=== PATIENT | male | born 1950 | race Caucasian/White ===

== ENCOUNTER → 2019-09-14 14:12 | Outpatient (BNVA) | payer MEDICARE, OTHER, SELFPAY | PROVIDERS: Family Provider Family Medicine; PCP Family Medicine; Visit Provider Nurse Practitioner | DX: M79.671 Pain in right foot (principal); M79.672 Pain in left foot; G62.89 Other specified polyneuropathies; R29.898 Other symptoms and signs involving the musculoskeletal system; Z79.891 Long term (current) use of opiate analgesic | CPT/HCPCS: 99213; 99214 ==

== ENCOUNTER 2019-10-12 13:13 | Outpatient (CLI) | payer MEDICARE, OTHER, SELFPAY ==
--- NOTE | 2019-10-12 13:20 | MR_ITS ---
WS: [id number] MRI abdomen with and without contrast. HISTORY: History of colon cancer. Abnormal liver findings. Planar, multisequence imaging is performed through the liver with and without contrast. COMPARISON: CT 03/17/2018 and prior MRI abdomen 12/31/2017. Liver is normal size. Stable masses in the RIGHT lobe of the liver inferiorly. The largest mass is lo bulated and partially exophytic resulting in bulging of the contour of the RIGHT hepatic lobe. Lobula marleni mass is stable measuring 4.9 x 2.8 cm. Predominantly T2 increased signal with a few more intense areas of increased signal. On the postcontrast sequences there is peripheral enhancement. Mass does n ot completely fill-in with contrast and become isointense to the remaining liver but this mass has be en stable over multiple years and noted to be benign on PET/CT, likely hemangioma. There is an additi onal T2 bright nodule in the RIGHT lobe of the liver with a maximum diameter of 1.2 cm. This nodule e nhances consistent with a hemangioma. This nodule is also stable compared to multiple prior studies. Portal vein is patent. Visualized gallbladder is negative. Again noted is a stable lipid rich LEFT ad renal mass measuring 2.4 x 1.8 cm consistent with an adenoma. No pleural effusion. The visualized spleen and pancreas are negative. Negative RIGHT adrenal gland. N o adenopathy or ascites. MR/MR abdomen wo/w con* [id number] IMPRESSION: 1. Long-term stability of PET/CT negative for masses in the RIGHT lobe of the liver consistent with hemangiomas. 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 2. Stable benign LEFT adrenal adenoma.
[2019-10-12 14:02] LABS: Blood Urea Nitrogen 22 mg/dL (8-23); Glomerular Filtration Rate 96.1 mL/min (90-130)
== END 2019-10-12 13:14 | disposition home or self-care (01) ==
LOC: RADSHAW 13:13
PROVIDERS: Family Provider Family Medicine; PCP Family Medicine; Visit Provider Surgery
DX: M79.671 Pain in right foot (principal); M79.672 Pain in left foot; G62.89 Other specified polyneuropathies; R29.898 Other symptoms and signs involving the musculoskeletal system; Z79.891 Long term (current) use of opiate analgesic
CPT/HCPCS: 74183; 82565; 84520; 99214; A9579

== ENCOUNTER → 2020-01-18 13:26 | Outpatient (BNVA) | payer MEDICARE, OTHER, SELFPAY | PROVIDERS: Family Provider Family Medicine; PCP Family Medicine; Visit Provider Anesthesiology | DX: G89.29 Other chronic pain (principal); M79.671 Pain in right foot; M79.672 Pain in left foot; M48.07 Spinal stenosis, lumbosacral region; G62.89 Other specified polyneuropathies; Z79.891 Long term (current) use of opiate analgesic | CPT/HCPCS: 99214 ==

== ENCOUNTER 2020-02-06 13:59 | Outpatient (CLI) | payer MEDICARE, OTHER, SELFPAY ==
[2020-02-06 14:27] LABS: Basophils % 0.4 %; Eosinophils # 0.1 10^3/uL (0.0-0.8); Eosinophils % 1.7 %; Hematocrit 41.5 % (42.0-52.0); Hemoglobin 12.9 g/dL (11.7-16.6); Lymphocytes # 0.7 10^3/uL (0.8-4.8); Mean Corpuscular HGB Conc 31.1 g/dL (30.0-36.0); Mean Corpuscular Hemoglobin 29.8 pg (28.0-34.0); Mean Corpuscular Volume 95.8 fL (80-94); Mean Platelet Volume 10.6 fL (7.4-10.4); Monocytes # 0.4 10^3/uL (0.2-0.9); Monocytes % 8.9 %; Neutrophils # 3.4 10^3/uL (1.8-7.7); Neutrophils % 73.8 %; Nucleated Red Blood Cells % 0 %; Platelet Count 143 10^3/cmm (130-400); Red Blood Count 4.33 10^6/uL (4.1-5.3); Red Cell Distribution Width 13.1 % (12.1-15.1); White Blood Count 4.6 10^3/uL (4.0-10.0)
[2020-02-06 14:49] LABS: Carcinoembryonic Antigen 4.3 ng/mL (0.0-4.7)
[2020-02-06 15:00] LABS: Alanine Aminotransferase 22 U/L (0-41); Albumin Level 4.2 g/dL (3.5-5.2); Alkaline Phosphatase 112 IU/L (40-130); Aspartate Amino Transferase 20 U/L (0-40); Blood Urea Nitrogen 19 mg/dL (8-23); Calcium 9.4 mg/dL (8.5-10.5); Carbon Dioxide 28 mmol/L (22-29); Chloride 101 mmol/L (98-107); Globulin 2.8 g/dL (1.3-4.6); Glomerular Filtration Rate 96.1 mL/min (90-130); Glucose 96 mg/dL (65-115); Osmolality Calculated 286 mOsm/kg (285-295); Sodium 140 mmol/L (136-145); Total Bilirubin 0.3 mg/dL (0.15-1.2)
--- NOTE | 2020-02-06 16:41 | ONC FU_ITS ---
Dr. Cohen follow up note Patient: Rogerio Sweet Unit #: [id number]: 1950 Dicatated By: Juany Cohen M.D.Date of Visit:Feb 06, 2020 Onc Med Follow-up/Prog Note History of Present Illness: Mr. Sweet is a 69-year-old gentleman with a 3-4 year history of rectal bleeding which he thought was due to hemorrhoids. This had not changed recently. However he was noted to have progressive anemia after several CBCs. His hemoglobin had dropped to 9, in the rectum. which prompted a diagnostic colonoscopy on 11/24/2017. The colonoscopy did reveal a malignant appearing mass involving two thirds of the circumference in the rectum. This was biopsied and the pathology confirmed well to moderately differentiated infiltrating adenocarcinoma. Mr. Sweet underwent a CT of the abdomen and pelvis on 11/24/2017 which showed near-complete circumferential rectal thickening over length of 6.2 cm with a wall thickening measured up to 1.3 cm. There was a suspicious hypodense mass in the liver. PET/CT on 12/04/2017 showed hypermetabolic rectal mass. There were presacral and perirectal lymph nodes that were too small to characterize with FDG imaging that were suspicious for metastasis. The hepatic masses FDG negative suggesting benign disease. MRI of the pelvis was obtained at [facility] in [place] on 12/16/2017. It showed several interim mass within the mid to superior rectal segment about 8.5 cm above the anal verge. The mass involves a 4.3 cm in length rectal segment. Other details as on the tumor margins all high-resolution, T2 weighted images are limited due to bowel motion, the images are suggestive of T2 disease that as early as T3 disease. There is 8 mm left perirectal and presacral lymph node adjacent/superior to the rectal mass. 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 He began his first week of chemoradiation on 01/18/2018 with oral Xeloda . He completed therapy on 02/25/2018. He had boost consisting of 540 cGy at that time and prior he finished his full dosing radiation to the pelvis on 02/22/2018 with a total of 4500 cGy total. He has completed the Xeloda as well. After completion of his neoadjuvant therapy, Mr. Sweet returned to Dr. Reddy and underwent robotic resection with ileostomy placement his final pathology showed margin negative resection and 11 negative lymph nodes. The tumor is still T3. It was recommended that Mr Clement pursue 12 cycles of FOLFOX. The current plan is to do ileostomy bag reversal after adjuvant chemotherapy is concluded. Mr. Sweet began his first treatment of FOLFOX on 06/09/2018. presented to the ER with worsening back and leg pain. He did have an MRI of the lumbar spine done on 09/15/18 which reports moderate to severe bilateral foraminal stenosis at L5-S1 due to combination of factors including grade 1 spondylolisthesis of L5 and L5 spondylosis. There is also mild facet joint arthropathy throughout the lumbar spine. no significant central stenosis. He states however that the hydrocodone does not help his pain at all. He feels that the Lyrica that was started in the emergency room may have helped some. He was seen by Dr. Ivan neurologist on 09/23/2018 and he was given prescription for vitamin E twice a day, Effexor 37.5 mg daily and continued with lyrica and nerve conduction study was planned. Patient denies any numbness in hands/ upper extremity weakness or pain. Clinically it appears his pain/paresthesia and lower extremity could be from lumbar spine abnormality seen on MRI scan and chemotherapy may have added some to his symptoms. His last dose of chemotherapy with modified FOLFOX cycle #5 was done on 09/01/2018. persistent numbness in lower extremity especially in the feet and off and on cramps in both legs, sometime change in lower extremities position helps him. He is on Lyrica, Effexor , vitamin E and when necessary hydrocodone. Patient was seen by Dr. Ivan, feeder/folder, and recently underwent nerve conduction study. As per patient and , nerve conduction study did not clarify, whether numbness is due to spinal stenosis or chemotherapy, now being referred to Dr. Oneil, neurosurgery for evaluation and patient has follow-up appointment with Dr. Ivan in December 2018. lower extremities numbness but no more numbness in his hands. As per patient Dr. Oneil has increased his Lyrica dose 200 mg by mouth 3 times a day and now his numbness is more in the right foot compared to left and up to below knee bilaterally .Patient was referred and evaluated in colorectal clinic at [facility] in [place] for evaluation for clinical trial especially with immunotherapy in adjuvant setting. Patient was seen. As per the recommendation, it is doubtful chemotherapy is entirely responsible for lower extremity numbness as numbness in hands is resolved now, so it could be due to nerve root impingement in the spine, treatment options including continue with FOLFOX or 5-FU alone or observation, was recommended but patient is reluctant and wants to see Dr. Alvarez neurologist in [place] before consider any treatment. Patient quit taken FOLFOX after 5 cycles and went to [place] to see Dr. Alvarez, as per patient he underwent L5 surgery and a did not improve numbness in his feet, as per patient Dr. Alvarez has done the best could have. .Patient underwent endoscopy examination through ileostomy, in mid March 2019 and as per patient he it showed no abnormality and subsequently underwent ileostomy reversal on 04/13/2019 in [place]. As far as hepatic lesions seen on previous radiological studies, thought to be due to hemangioma is concern, patient underwent liver sonogram in first week of March in 2018 in [place] as per patient he was told 1 out of 4 lesions has disappeared and other 3 are not that prominent. And no sign of malignancy. Patient went to see Dr. izaguirre for port removal, . Came for follow-up, denies any specific complaint except chronic tingling numbness but somewhat better, not using walker anymore or stick, as per patient he underwent colonoscopy in [address] Izaguirre in [place], as per patient it was unremarkable and he also had MRI scan of the abdomen done on October 12, 2019 which showed long-term stability of CT PET negative for masses in the right lobe of the liver consistent with hemangioma. 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 Stable benign left adrenal adenoma. Patient denies any fever chills, denies any nausea or vomiting denies any diarrhea constipation denies any melena hematochezia. Denies any jaundice. As per patient he has a follow-up appointment with Dr. izaguirre and Dr. Lomeli in April 2020. Medications: Effexor XR 1 Capsule (of 75 mg) Capsule SR 24 HR Oral b.i.d., EPINEPHrine (Anaphylaxis) 1 Injection PRN, Gabapentin 1 Capsule (of 300 mg) Oral t.i.d., Lisinopril 1 (20 mg) Tablet Oral daily, Multivitamin Men 1 Tablet Oral daily, Viagra 1 Tablet (of 100 mg) Tablet Oral PRN Allergies: Penicillins, Pravastatin Sodium, and RED MEAT. Review of Systems: Constitutional - Appetite is fair and weight is stable. No fever, chills, hot flashes, or night sweats. Energy level is poor, ENMT - No sinus congestion/drainage. No mouth sores. No sore throat or difficulty swallowing, Hematologic/Lymphatic - No unusual bruising or bleeding, Respiratory - No shortness of breath. No cough. No pleuritic pain or hemoptysis, Cardiovascular - No angina pain. No palpitations, Gastrointestinal - Patient has no nausea, no vomiting. No heartburn or acid reflux. No diarrhea or constipation, Genitourinary (M) - No dysuria or hematuria. No urinary frequency. No urgency or incontinence, Musculoskeletal - bilateral feet pain, Integumentary - No skin ulcer or open wounds, Neurologic - No headache or dizziness. Patient has some numbness/paresthesias to bilateral feet. No other focal neurologic symptoms, Psychiatric - No anxiety or depression. Positive for insomnia. Vital Signs: Performed on Feb 06, 2020 15:51 Height - 68.00 in Weight - 191.8 lbs (HIGH) BSA - 2.01 sq.m BMI - 29.16 Temperature - 98.8 F Pulse - 88 /min Respiration - 18 /min BP - 154/79 mm(hg) (HIGH) O2 Sat - 94 % (LOW) Pain - 0 Performance Status: 1 - No physically strenuous activity, but ambulatory and able to carry out light or sedentary work (e.g. office work, light house work). (ECOG) Physical Examination: ENMT - No mouth sores, no thrush no jaundice, Respiratory - Lungs are clear, Cardiovascular - Regular rate and rhythm of heart, Abdomen - Soft, bowel sounds present, Extremities - No edema or rash. Lab/Imaging: Most recent lab results are not available for this patient. Impression: Moderately differentiated adenocarcinoma of the rectum status post neoadjuvant combined chemoradiation with oral Xeloda from 01/18/2018 to 02/25/[address] Status post robotic resection of rectal mass with ileostomy final pathology report showed tumor invades through muscularis propria into pericolorectal tissue ,T3, no regional lymph node metastasis in 11 examined lymph node N0, no lymphovascular/perineural invasion seen . ypT3,N0 stage II MMR/MSI testing showed normal expression of DNA mismatch repair protein Focally infiltrating adenocarcinoma per rectal biopsy done on 11/24/2017 CT scan of abdomen pelvis done on 11/24/2017 showed in the region of rectum there is near circumferential mucosal thickening with enhancement extending over a length of 6.2 cm and multiple hepatic lesions largest being 4.9 x 5.1 x 3.1 cm in posterior right lobe of the liver CT PET scan done on 12/12/2017 showed primary rectal carcinoma with SUV of 20.1 measured 4.3 x 3.7 x 7 cm there are small subcentimeter multiple presacral and perirectal lymph nodes present and posterior right hepatic lobe mass seen on CT scan of abdomen pelvis is FDG negative this makes hepatic metastatic disease unlikely. MRI scan of the pelvis done on 12/16/2017 showed there is a [id number]-smzqqe masslike process within the mid to superior rectum roughly 8.5 cm above the anal verge measure 4.3 cm in length and nonspecific 8 mm left perirectal lymph node seen MRI scan of the liver done on 12/31/2017 reported: Several liver lesions compatible with cavernous hemangiomas including posterior margin right lobe somewhat exophytic lesion. Additional incidental superior subcapsular medial segment left lobe. No space-occupying liver lesion seen to suggest metastatic disease. 2. Lipid rich left adrenal adenoma. Mr. Sweet was advised to pursue neoadjuvant combined therapy with radiation and chemotherapy. His chemotherapy agent consisted of Xeloda 1500 mg twice a day on the days of radiation only. He began his first treatment with Xeloda and radiation on January 18, 2018. He has tolerated treatment very well. He completed his final radiation treatment on 02/25/2018. He completed the Xeloda as well. CT scan of abdomen pelvis done on 03/17/2018 showed improvement in rectal wall thickening stable liver lesion most suggestive of cavernous hemangiomas, upper pole left renal lesion, likely a solid lesion and stable from prior exam. Status post robotic resection of rectal mass with 11 lymph nodes removal and final pathology report showed persistent disease e.g.T3 and 0 out of 11 lymph nodes positive for metastatic disease with ileostomy bag. The current plan is to do ileostomy bag reversal after adjuvant chemotherapy is concluded. Mr Kee started on adjuvant chemotherapy with modified dose FOLFOX on 06/09/2018. He had tolerated it well overall, but did have a drop in blood counts with his first cycle resulting in a delay in cycle 2. He is now having worsening leg and back pain. Somewhat supsected to be from oxaliplatin but he also has moderate to severe bilateral foraminal stenosis at L5-S1 due to combination of factors including grade 1 spondylolisthesis of L5 and L5 spondylosis. There is also mild facet joint arthropathy throughout the lumbar spine. no significant central stenosis. His chemotherapy with modified dose FOLFOX is on hold since 09/01/2018 e.g. after cycle #5/12. Patient was evaluated by Dr. Ivan, neurologist on 09/23/2018, so he was given vitamin E, Effexor and continue with lyrica . Now being monitored in pain clinic, numbness in his hands has improved significantly but persistent numbness in in the feet, right more than left. Patient doesn't want to start chemotherapy as per patient, he was told by neurology and pain clinic that his numbness in his feet is due to chemotherapy. Patient was evaluated in colorectal clinic at [facility] and following was recommended, observation alone, or complete remaining adjuvant therapy with 5-FU alone continue with FOLFOX with close monitoring. As his numbness in lower extremity appears to be multifactorial including but most likely pathology in his spine , as numbness in his hands is resolved. Next Patient wants to see Dr. Alvarez neurologist in [place] and want to discuss with him regarding safety of oxaliplatin/5-FU before we consider chemotherapy, knowing the risk versus benefits involved. After fifth dose of FOLFOX, patient decided not to take further chemotherapy rather observation alone Plan: Discussed with patient regarding his labs white blood count 4.6 hemoglobin 12.9 hematocrit 41.5 platelets 143,000 CMP within normal limits CEA is pending Clinically, patient is doing well with no signs symptoms just of recurrence of disease. Patient had a follow-up MRI scan of the liver/abdomen done in September 2019 which showed stable liver lesion consistent with hemangioma and no evidence of recurrence of disease. Patient also had colonoscopy done in [place] in September 2019 as per patient, it was unremarkable. Will obtain copy of his colonoscopy report from [place]. Patient said he has follow-up appointment with Dr. Lomeli, and Dimitri in the mid April 2020, and he is getting his follow-up scans and evaluation done there in that case we will see him back in the first week of May 2020 with CBC CMP and CEA. Signed By: Juany Cohen M.D. <<Signature on File>>
== END 2020-02-06 14:00 | disposition home or self-care (01) ==
LOC: ONCMED 14:03
PROVIDERS: PCP Family Medicine; Visit Provider Internal Medicine Hematology & Oncology
DX: C20 Malignant neoplasm of rectum (principal); R20.0 Anesthesia of skin; M48.061 Spinal stenosis, lumbar region without neurogenic claudication; D18.09 Hemangioma of other sites; Z92.21 Personal history of antineoplastic chemotherapy; Z92.3 Personal history of irradiation
CPT/HCPCS: 80053; 82378; 85025; G0463

== ENCOUNTER → 2020-03-21 09:17 | Outpatient (BNVA) | payer MEDICARE, OTHER, SELFPAY | PROVIDERS: PCP Family Medicine; Visit Provider Anesthesiology | DX: G89.29 Other chronic pain (principal); G62.89 Other specified polyneuropathies; M54.5 Low back pain; M48.07 Spinal stenosis, lumbosacral region; Z79.891 Long term (current) use of opiate analgesic | CPT/HCPCS: 99214 ==

== ENCOUNTER 2020-05-09 11:24 | Outpatient (CLI) | payer MEDICARE, OTHER, SELFPAY ==
[2020-05-09 11:58] LABS: Basophils % 0.5 %; Eosinophils # 0.1 10^3/uL (0.0-0.8); Eosinophils % 2.3 %; Hemoglobin 12.5 g/dL (11.7-16.6); Lymphocytes # 0.6 10^3/uL (0.8-4.8); Lymphocytes % 16.4 %; Mean Corpuscular HGB Conc 31.3 g/dL (30.0-36.0); Mean Corpuscular Hemoglobin 30.3 pg (28.0-34.0); Mean Corpuscular Volume 96.9 fL (80-94); Mean Platelet Volume 10.9 fL (7.4-10.4); Monocytes # 0.3 10^3/uL (0.2-0.9); Monocytes % 7.5 %; Neutrophils # 2.81 10^3/uL (1.8-7.7); Nucleated Red Blood Cells % 0 %; Platelet Count 125 10^3/cmm (130-400); Red Blood Count 4.13 10^6/uL (4.1-5.3); Red Cell Distribution Width 13.1 % (12.1-15.1); White Blood Count 3.9 10^3/uL (4.0-10.0)
[2020-05-09 12:32] LABS: Carcinoembryonic Antigen 3.9 ng/mL (0.0-4.7)
[2020-05-09 12:43] LABS: Anion Gap 12.5 (5-19); Blood Urea Nitrogen 26 mg/dL (8-23); Carbon Dioxide 26 mmol/L (22-29); Chloride 102 mmol/L (98-107); Potassium 4.5 mmol/L (3.5-5.1); Sodium 136 mmol/L (136-145)
[2020-05-09 12:44] LABS: Alanine Aminotransferase 17 U/L (0-41); Albumin Level 4.1 g/dL (3.5-5.2); Alkaline Phosphatase 100 IU/L (40-130); Aspartate Amino Transferase 17 U/L (0-40); Calcium 8.7 mg/dL (8.5-10.5); Globulin 2.6 g/dL (1.3-4.6); Glomerular Filtration Rate 83.7 mL/min (90-130); Glucose 89 mg/dL (65-115); Osmolality Calculated 286 mOsm/kg (285-295); Total Bilirubin 0.5 mg/dL (0.15-1.2); Total Protein 6.7 g/dL (6.6-8.7)
--- NOTE | 2020-05-09 18:33 | ONC FU_ITS ---
Dr. Cohen follow up note Patient: Rogerio Sweet Unit #: [id number]: 1950 Dicatated By: Juany Cohen M.D.Date of Visit:May 09, 2020 Onc Med Follow-up/Prog Note History of Present Illness: Mr. Sweet is a 70-year-old gentleman with a 3-4 year history of rectal bleeding which he thought was due to hemorrhoids. This had not changed recently. However he was noted to have progressive anemia after several CBCs. His hemoglobin had dropped to 9, in the rectum. which prompted a diagnostic colonoscopy on 11/24/2017. The colonoscopy did reveal a malignant appearing mass involving two thirds of the circumference in the rectum. This was biopsied and the pathology confirmed well to moderately differentiated infiltrating adenocarcinoma. Mr. Sweet underwent a CT of the abdomen and pelvis on 11/24/2017 which showed near-complete circumferential rectal thickening over length of 6.2 cm with a wall thickening measured up to 1.3 cm. There was a suspicious hypodense mass in the liver. PET/CT on 12/04/2017 showed hypermetabolic rectal mass. There were presacral and perirectal lymph nodes that were too small to characterize with FDG imaging that were suspicious for metastasis. The hepatic masses FDG negative suggesting benign disease. MRI of the pelvis was obtained at [facility] in [place] on 12/16/2017. It showed several interim mass within the mid to superior rectal segment about 8.5 cm above the anal verge. The mass involves a 4.3 cm in length rectal segment. Other details as on the tumor margins all high-resolution, T2 weighted images are limited due to bowel motion, the images are suggestive of T2 disease that as early as T3 disease. There is 8 mm left perirectal and presacral lymph node adjacent/superior to the rectal mass. 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 He began his first week of chemoradiation on 01/18/2018 with oral Xeloda . He completed therapy on 02/25/2018. He had boost consisting of 540 cGy at that time and prior he finished his full dosing radiation to the pelvis on 02/22/2018 with a total of 4500 cGy total. He has completed the Xeloda as well. After completion of his neoadjuvant therapy, Mr. Sweet returned to Dr. Reddy and underwent robotic resection with ileostomy placement his final pathology showed margin negative resection and 11 negative lymph nodes. The tumor is still T3. It was recommended that Mr Clement pursue 12 cycles of FOLFOX. The current plan is to do ileostomy bag reversal after adjuvant chemotherapy is concluded. Mr. Sweet began his first treatment of FOLFOX on 06/09/2018. presented to the ER with worsening back and leg pain. He did have an MRI of the lumbar spine done on 09/15/18 which reports moderate to severe bilateral foraminal stenosis at L5-S1 due to combination of factors including grade 1 spondylolisthesis of L5 and L5 spondylosis. There is also mild facet joint arthropathy throughout the lumbar spine. no significant central stenosis. He states however that the hydrocodone does not help his pain at all. He feels that the Lyrica that was started in the emergency room may have helped some. He was seen by Dr. Ivan neurologist on 09/23/2018 and he was given prescription for vitamin E twice a day, Effexor 37.5 mg daily and continued with lyrica and nerve conduction study was planned. Patient denies any numbness in hands/ upper extremity weakness or pain. Clinically it appears his pain/paresthesia and lower extremity could be from lumbar spine abnormality seen on MRI scan and chemotherapy may have added some to his symptoms. His last dose of chemotherapy with modified FOLFOX cycle #5 was done on 09/01/2018. persistent numbness in lower extremity especially in the feet and off and on cramps in both legs, sometime change in lower extremities position helps him. He is on Lyrica, Effexor , vitamin E and when necessary hydrocodone. Patient was seen by Dr. Ivan, lithograph printer, and recently underwent nerve conduction study. As per patient and , nerve conduction study did not clarify, whether numbness is due to spinal stenosis or chemotherapy, now being referred to Dr. Oneil, neurosurgery for evaluation and patient has follow-up appointment with Dr. Ivan in December 2018. lower extremities numbness but no more numbness in his hands. As per patient Dr. Oneil has increased his Lyrica dose 200 mg by mouth 3 times a day and now his numbness is more in the right foot compared to left and up to below knee bilaterally .Patient was referred and evaluated in colorectal clinic at [facility] in [place] for evaluation for clinical trial especially with immunotherapy in adjuvant setting. Patient was seen. As per the recommendation, it is doubtful chemotherapy is entirely responsible for lower extremity numbness as numbness in hands is resolved now, so it could be due to nerve root impingement in the spine, treatment options including continue with FOLFOX or 5-FU alone or observation, was recommended but patient is reluctant and wants to see Dr. Alvarez neurologist in [place] before consider any treatment. Patient quit taken FOLFOX after 5 cycles and went to [place] to see Dr. Alvarez, as per patient he underwent L5 surgery and a did not improve numbness in his feet, as per patient Dr. Alvarez has done the best could have. .Patient underwent endoscopy examination through ileostomy, in mid March 2019 and as per patient he it showed no abnormality and subsequently underwent ileostomy reversal on 04/13/2019 in [place]. As far as hepatic lesions seen on previous radiological studies, thought to be due to hemangioma is concern, patient underwent liver sonogram in first week of March in 2018 in [place] as per patient he was told 1 out of 4 lesions has disappeared and other 3 are not that prominent. And no sign of malignancy. Patient went to see Dr. izaguirre for port removal, . , as per patient he underwent colonoscopy in September [address] Izaguirre in [place], as per patient it was unremarkable and he also had MRI scan of the abdomen done on October 12, 2019 which showed long-term stability of CT PET negative for masses in the right lobe of the liver consistent with hemangioma. 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 Stable benign left adrenal adenoma. Came for follow-up, denies any specific complaints, no fever chills, no nausea or vomiting, no diarrhea or constipation, no melena or hematochezia as per patient he was recently evaluated by Dr. Izaguirre and rectal exam showed no abnormality and also seen by Dr. Lomeli who did scans on May 02, 2020 showed no evidence of metastatic disease and he was advised to come back in 1 year. 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 Review of Systems: Review of Systems is not available for this patient. Vital Signs: Performed on May 09, 2020 13:18 Height - 68.00 in Weight - 190.6 lbs (LOW) BSA - 2.00 sq.m BMI - 28.98 Temperature - 98.2 F (LOW) Pulse - 75 /min Respiration - 24 /min BP - 151/72 mm(hg) (HIGH) O2 Sat - 98 % Pain - 0 Performance Status: 0 - Fully active, able to carry on all predisease activities without restrictions. (ECOG) Physical Examination: ENMT - No mouth sores, no thrush, no jaundice, Respiratory - Lungs are clear to auscultation, Cardiovascular - Regular rate and rhythm of heart, Abdomen - Soft, bowel sounds present, Extremities - No visible edema or rash. Lab/Imaging: Test performed on Feb 06, 2020 14:08 Sodium 140 mmol/L Potassium 4.0 mmol/L Chloride 101 mmol/L CO2 28 mmol/L Anion Gap 15.0 BUN 19 mg/dL Creatinine 0.8 mg/dL Cr Clearance (Est) 108.75 mL/min eGFR 96.1 mL/min Glucose 96 mg/dL Calcium 9.4 mg/dL Protein, Total 7.0 g/dL Albumin 4.2 g/dL Globulin 2.8 g/dL Bilirubin, Total 0.3 mg/dL ALT (SGPT) 22 U/L AST (SGOT) 20 U/L Alkaline Phosphatase 112 IU/L WBC 4.6 10 3/uL RBC 4.33 10 6/uL HGB 12.9 g/dL HCT 41.5 % MCV 95.8 fL MCH 29.8 pg MCHC 31.1 g/dL RDW 13.1 % Platelet Count 143 10 3/cmm MPV 10.6 fL Neutrophils 3.4 10 3/uL Lymphocytes 0.7 10 3/uL Monocytes 0.4 10 3/uL Eosinophils 0.1 10 3/uL Basophils 0.0 10 3/uL Neutrophil % 73.8 % Lymphocyte % 15.0 % Monocyte % 8.9 % Eosinophil % 1.7 % Basophils % 0.4 % NRBC % 0 % CEA 4.3 ng/mL Impression: Moderately differentiated adenocarcinoma of the rectum status post neoadjuvant combined chemoradiation with oral Xeloda from 01/18/2018 to 02/25/[address] Status post robotic resection of rectal mass with ileostomy final pathology report showed tumor invades through muscularis propria into pericolorectal tissue ,T3, no regional lymph node metastasis in 11 examined lymph node N0, no lymphovascular/perineural invasion seen . ypT3,N0 stage II MMR/MSI testing showed normal expression of DNA mismatch repair protein Focally infiltrating adenocarcinoma per rectal biopsy done on 11/24/2017 CT scan of abdomen pelvis done on 11/24/2017 showed in the region of rectum there is near circumferential mucosal thickening with enhancement extending over a length of 6.2 cm and multiple hepatic lesions largest being 4.9 x 5.1 x 3.1 cm in posterior right lobe of the liver CT PET scan done on 12/12/2017 showed primary rectal carcinoma with SUV of 20.1 measured 4.3 x 3.7 x 7 cm there are small subcentimeter multiple presacral and perirectal lymph nodes present and posterior right hepatic lobe mass seen on CT scan of abdomen pelvis is FDG negative this makes hepatic metastatic disease unlikely. MRI scan of the pelvis done on 12/16/2017 showed there is a doyh-hcybb-euyduw masslike process within the mid to superior rectum roughly 8.5 cm above the anal verge measure 4.3 cm in length and nonspecific 8 mm left perirectal lymph node seen MRI scan of the liver done on 12/31/2017 reported: Several liver lesions compatible with cavernous hemangiomas including posterior margin right lobe somewhat exophytic lesion. Additional incidental superior subcapsular medial segment left lobe. No space-occupying liver lesion seen to suggest metastatic disease. 2. Lipid rich left adrenal adenoma. Mr. Sweet was advised to pursue neoadjuvant combined therapy with radiation and chemotherapy. His chemotherapy agent consisted of Xeloda 1500 mg twice a day on the days of radiation only. He began his first treatment with Xeloda and radiation on January 18, 2018. He has tolerated treatment very well. He completed his final radiation treatment on 02/25/2018. He completed the Xeloda as well. CT scan of abdomen pelvis done on 03/17/2018 showed improvement in rectal wall thickening stable liver lesion most suggestive of cavernous hemangiomas, upper pole left renal lesion, likely a solid lesion and stable from prior exam. Status post robotic resection of rectal mass with 11 lymph nodes removal and final pathology report showed persistent disease e.g.T3 and 0 out of 11 lymph nodes positive for metastatic disease with ileostomy bag. The current plan is to do ileostomy bag reversal after adjuvant chemotherapy is concluded. Mr Sweet started on adjuvant chemotherapy with modified dose FOLFOX on 06/09/2018. He had tolerated it well overall, but did have a drop in blood counts with his first cycle resulting in a delay in cycle 2. He is now having worsening leg and back pain. Somewhat supsected to be from oxaliplatin but he also has moderate to severe bilateral foraminal stenosis at L5-S1 due to combination of factors including grade 1 spondylolisthesis of L5 and L5 spondylosis. There is also mild facet joint arthropathy throughout the lumbar spine. no significant central stenosis. His chemotherapy with modified dose FOLFOX is on hold since 09/01/2018 e.g. after cycle #5/12. Patient was evaluated by Dr. Ivan, neurologist on 09/23/2018, so he was given vitamin E, Effexor and continue with lyrica . Now being monitored in pain clinic, numbness in his hands has improved significantly but persistent numbness in in the feet, right more than left. Patient doesn't want to start chemotherapy as per patient, he was told by neurology and pain clinic that his numbness in his feet is due to chemotherapy. Patient was evaluated in colorectal clinic at [facility] and following was recommended, observation alone, or complete remaining adjuvant therapy with 5-FU alone continue with FOLFOX with close monitoring. As his numbness in lower extremity appears to be multifactorial including but most likely pathology in his spine , as numbness in his hands is resolved. Next Patient wants to see Dr. Alvarez neurologist in [place] and want to discuss with him regarding safety of oxaliplatin/5-FU before we consider chemotherapy, knowing the risk versus benefits involved. After fifth dose of FOLFOX, patient decided not to take further chemotherapy rather observation alone Plan: Discussed with patient regarding his labs white blood count 3.9 hemoglobin 12.5 hematocrit 40 platelets 125,000 CMP within normal, CEA 3.9 Clinically, patient is doing well with no signs symptom suggestive of recurrence of disease his follow-up lab work-up is within normal range patient said he underwent CT scan of abdomen pelvis on May 02, [address] Lomeli informed him there is no evidence of recurrence of disease. In this case we will continue to monitor patient has mild thrombocytopenia and leukopenia he will return to clinic in 4 months with CBC CMP and CEA. Signed By: Juany Cohen M.D. <<Signature on File>>
== END 2020-05-09 11:25 | disposition home or self-care (01) ==
LOC: ONCMED 11:28
PROVIDERS: PCP Family Medicine; Visit Provider Internal Medicine Hematology & Oncology
DX: C20 Malignant neoplasm of rectum (principal); C78.7 Secondary malignant neoplasm of liver and intrahepatic bile duct; Z92.3 Personal history of irradiation
CPT/HCPCS: 80053; 82378; 85025; G0463

== ENCOUNTER → 2020-05-24 13:15 | Outpatient (BNVA) | payer MEDICARE, OTHER, SELFPAY | PROVIDERS: PCP Family Medicine; Visit Provider Anesthesiology | DX: M79.672 Pain in left foot (principal); M79.671 Pain in right foot; G62.89 Other specified polyneuropathies; Z79.891 Long term (current) use of opiate analgesic | CPT/HCPCS: 99214 ==

== ENCOUNTER → 2020-07-20 09:49 | Outpatient (BNVA) | payer MEDICARE, OTHER, SELFPAY | PROVIDERS: PCP Family Medicine; Visit Provider Anesthesiology | DX: G89.29 Other chronic pain (principal); G62.89 Other specified polyneuropathies; M79.604 Pain in right leg; M79.605 Pain in left leg; M48.07 Spinal stenosis, lumbosacral region; Z79.891 Long term (current) use of opiate analgesic | CPT/HCPCS: 99214 ==

== ENCOUNTER → 2020-08-02 09:51 | Outpatient (BNVA) | payer MEDICARE, OTHER, SELFPAY | PROVIDERS: PCP Family Medicine; Visit Provider Podiatrist Foot & Ankle Surgery | DX: M19.072 Primary osteoarthritis, left ankle and foot (principal); M19.071 Primary osteoarthritis, right ankle and foot; M79.671 Pain in right foot; M79.672 Pain in left foot | CPT/HCPCS: 73630 ==

== ENCOUNTER 2020-09-11 12:56 | Outpatient (CLI) | payer MEDICARE, OTHER, SELFPAY ==
[2020-09-11 13:27] LABS: Basophils % 0.2 %; Eosinophils # 0.1 10^3/uL (0.0-0.8); Eosinophils % 1.6 %; Hematocrit 41.9 % (42.0-52.0); Hemoglobin 13.4 g/dL (11.7-16.6); Lymphocytes # 0.6 10^3/uL (0.8-4.8); Lymphocytes % 11.8 %; Mean Corpuscular Hemoglobin 30.9 pg (28.0-34.0); Mean Corpuscular Volume 96.8 fL (80-94); Mean Platelet Volume 10.7 fL (7.4-10.4); Monocytes # 0.3 10^3/uL (0.2-0.9); Monocytes % 5.8 %; Neutrophils # 4.02 10^3/uL (1.8-7.7); Neutrophils % 80.4 %; Nucleated Red Blood Cells % 0 %; Platelet Count 164 10^3/cmm (130-400); Red Blood Count 4.33 10^6/uL (4.1-5.3); Red Cell Distribution Width 13.2 % (12.1-15.1)
[2020-09-11 14:01] LABS: Alanine Aminotransferase 23 U/L (0-41); Albumin Level 4.4 g/dL (3.5-5.2); Alkaline Phosphatase 136 IU/L (40-130); Anion Gap 12.2 (5-19); Aspartate Amino Transferase 17 U/L (0-40); Blood Urea Nitrogen 22 mg/dL (8-23); Calcium 9.6 mg/dL (8.5-10.5); Carbon Dioxide 29 mmol/L (22-29); Chloride 102 mmol/L (98-107); Globulin 2.9 g/dL (1.3-4.6); Glomerular Filtration Rate 74.1 mL/min (90-130); Glucose 134 mg/dL (65-115); Osmolality Calculated 293 mOsm/kg (285-295); Potassium 4.2 mmol/L (3.5-5.1); Sodium 139 mmol/L (136-145); Total Bilirubin 0.3 mg/dL (0.15-1.2); Total Protein 7.3 g/dL (6.6-8.7)
--- NOTE | 2020-09-11 14:48 | ONC FU_ITS ---
Dr. Cohen follow up note Patient: Rogerio Sweet Unit #: [id number]: 1950 Dicatated By: Juany Cohen M.D.Date of Visit:Sep 11, 2020 Onc Med Follow-up/Prog Note History of Present Illness: Mr. Sweet is a 70-year-old gentleman with a 3-4 year history of rectal bleeding which he thought was due to hemorrhoids. This had not changed recently. However he was noted to have progressive anemia after several CBCs. His hemoglobin had dropped to 9, in the rectum. which prompted a diagnostic colonoscopy on 11/24/2017. The colonoscopy did reveal a malignant appearing mass involving two thirds of the circumference in the rectum. This was biopsied and the pathology confirmed well to moderately differentiated infiltrating adenocarcinoma. Mr. Sweet underwent a CT of the abdomen and pelvis on 11/24/2017 which showed near-complete circumferential rectal thickening over length of 6.2 cm with a wall thickening measured up to 1.3 cm. There was a suspicious hypodense mass in the liver. PET/CT on 12/04/2017 showed hypermetabolic rectal mass. There were presacral and perirectal lymph nodes that were too small to characterize with FDG imaging that were suspicious for metastasis. The hepatic masses FDG negative suggesting benign disease. MRI of the pelvis was obtained at [facility] in [place] on 12/16/2017. It showed several interim mass within the mid to superior rectal segment about 8.5 cm above the anal verge. The mass involves a 4.3 cm in length rectal segment. Other details as on the tumor margins all high-resolution, T2 weighted images are limited due to bowel motion, the images are suggestive of T2 disease that as early as T3 disease. There is 8 mm left perirectal and presacral lymph node adjacent/superior to the rectal mass. 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 He began his first week of chemoradiation on 01/18/2018 with oral Xeloda . He completed therapy on 02/25/2018. He had boost consisting of 540 cGy at that time and prior he finished his full dosing radiation to the pelvis on 02/22/2018 with a total of 4500 cGy total. He has completed the Xeloda as well. After completion of his neoadjuvant therapy, Mr. Sweet returned to Dr. Reddy and underwent robotic resection with ileostomy placement his final pathology showed margin negative resection and 11 negative lymph nodes. The tumor is still T3. It was recommended that Mr Clement pursue 12 cycles of FOLFOX. The current plan is to do ileostomy bag reversal after adjuvant chemotherapy is concluded. Mr. Sweet began his first treatment of FOLFOX on 06/09/2018. presented to the ER with worsening back and leg pain. He did have an MRI of the lumbar spine done on 09/15/18 which reports moderate to severe bilateral foraminal stenosis at L5-S1 due to combination of factors including grade 1 spondylolisthesis of L5 and L5 spondylosis. There is also mild facet joint arthropathy throughout the lumbar spine. no significant central stenosis. He states however that the hydrocodone does not help his pain at all. He feels that the Lyrica that was started in the emergency room may have helped some. He was seen by Dr. Ivan neurologist on 09/23/2018 and he was given prescription for vitamin E twice a day, Effexor 37.5 mg daily and continued with lyrica and nerve conduction study was planned. Patient denies any numbness in hands/ upper extremity weakness or pain. Clinically it appears his pain/paresthesia and lower extremity could be from lumbar spine abnormality seen on MRI scan and chemotherapy may have added some to his symptoms. His last dose of chemotherapy with modified FOLFOX cycle #5 was done on 09/01/2018. persistent numbness in lower extremity especially in the feet and off and on cramps in both legs, sometime change in lower extremities position helps him. He is on Lyrica, Effexor , vitamin E and when necessary hydrocodone. Patient was seen by Dr. Ivan, school of nursing director, and recently underwent nerve conduction study. As per patient and , nerve conduction study did not clarify, whether numbness is due to spinal stenosis or chemotherapy, now being referred to Dr. Oneil, neurosurgery for evaluation and patient has follow-up appointment with Dr. Ivan in December 2018. lower extremities numbness but no more numbness in his hands. As per patient Dr. Oneil has increased his Lyrica dose 200 mg by mouth 3 times a day and now his numbness is more in the right foot compared to left and up to below knee bilaterally .Patient was referred and evaluated in colorectal clinic at [facility] in [place] for evaluation for clinical trial especially with immunotherapy in adjuvant setting. Patient was seen. As per the recommendation, it is doubtful chemotherapy is entirely responsible for lower extremity numbness as numbness in hands is resolved now, so it could be due to nerve root impingement in the spine, treatment options including continue with FOLFOX or 5-FU alone or observation, was recommended but patient is reluctant and wants to see Dr. Alvarez neurologist in [place] before consider any treatment. Patient quit taken FOLFOX after 5 cycles and went to [place] to see Dr. Alvarez, as per patient he underwent L5 surgery and a did not improve numbness in his feet, as per patient Dr. Alvarez has done the best could have. .Patient underwent endoscopy examination through ileostomy, in mid March 2019 and as per patient he it showed no abnormality and subsequently underwent ileostomy reversal on 04/13/2019 in [place]. As far as hepatic lesions seen on previous radiological studies, thought to be due to hemangioma is concern, patient underwent liver sonogram in first week of March in 2018 in [place] as per patient he was told 1 out of 4 lesions has disappeared and other 3 are not that prominent. And no sign of malignancy. Patient went to see Dr. izaguirre for port removal, . , as per patient he underwent colonoscopy in September [address] Izaguirre in [place], as per patient it was unremarkable and he also had MRI scan of the abdomen done on October 12, 2019 which showed long-term stability of CT PET negative for masses in the right lobe of the liver consistent with hemangioma. 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 Stable benign left adrenal adenoma. as per patient he was recently evaluated by Dr. Izaguirre and rectal exam showed no abnormality and also seen by Dr. Lomeli who did scans on May 02, 2020 showed no evidence of metastatic disease and he was advised to come back in 1 year. 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 Denies any melena or hematochezia denies any jaundice, denies any diarrhea or constipation denies abdominal pain denies any weight loss. Medications: Effexor XR 1 Capsule (of 75 mg) Capsule SR 24 HR Oral b.i.d., EPINEPHrine (Anaphylaxis) 1 Injection PRN, Gabapentin 1 Capsule (of 300 mg) Oral t.i.d., Lisinopril 1 (20 mg) Tablet Oral daily, Multivitamin Men 1 Tablet Oral daily, Viagra 1 Tablet (of 100 mg) Tablet Oral PRN Allergies: Penicillins, Pravastatin Sodium, and RED MEAT. Review of Systems: Constitutional - Appetite is fair and weight is stable. No fever, chills, hot flashes, or night sweats. Energy level is fair, ENMT - No sinus congestion/drainage. No mouth sores. No sore throat or difficulty swallowing, Hematologic/Lymphatic - No unusual bruising or bleeding, Respiratory - No shortness of breath. No cough. No pleuritic pain or hemoptysis, Cardiovascular - No angina pain. No palpitations, Gastrointestinal - Patient has no nausea, no vomiting. No heartburn or acid reflux. No diarrhea or constipation, Genitourinary (M) - No dysuria or hematuria. No urinary frequency. No urgency or incontinence, Musculoskeletal - bilateral feet pain, Integumentary - No skin ulcer or open wounds, Neurologic - No headache or dizziness. Patient has some numbness/paresthesias to bilateral feet. No other focal neurologic symptoms, Psychiatric - No anxiety or depression. Positive for insomnia. Vital Signs: Performed on Sep 11, 2020 14:17 Height - 68.00 in Weight - 195.2 lbs (HIGH) BSA - 2.02 sq.m BMI - 29.68 Temperature - 98.9 F (HIGH) Pulse - 117 /min (HIGH) Respiration - 16 /min BP - 173/80 mm(hg) (HIGH) O2 Sat - 95 % (LOW) Pain - 0 Performance Status: 1 - No physically strenuous activity, but ambulatory and able to carry out light or sedentary work (e.g. office work, light house work). (ECOG) Physical Examination: ENMT - No mouth sores, no thrush, no jaundice, Respiratory - Lungs are clear to auscultation, Cardiovascular - Regular rate and rhythm of heart, Abdomen - Soft, bowel sounds present, Extremities - No visible edema. Lab/Imaging: Test performed on May 09, 2020 11:40 Sodium 136 mmol/L Potassium 4.5 mmol/L Chloride 102 mmol/L CO2 26 mmol/L Anion Gap 12.5 BUN 26 mg/dL Creatinine 0.9 mg/dL Cr Clearance (Est) 94.73 mL/min eGFR 83.7 mL/min Glucose 89 mg/dL Osmolality - Calculated 286 mOsm/kg Calcium 8.7 mg/dL Protein, Total 6.7 g/dL Albumin 4.1 g/dL Globulin 2.6 g/dL Bilirubin, Total 0.5 mg/dL ALT (SGPT) 17 U/L AST (SGOT) 17 U/L Alkaline Phosphatase 100 IU/L WBC 3.9 10 3/uL RBC 4.13 10 6/uL HGB 12.5 g/dL HCT 40.0 % MCV 96.9 fL MCH 30.3 pg MCHC 31.3 g/dL RDW 13.1 % Platelet Count 125 10 3/cmm MPV 10.9 fL Neutrophils 2.81 10 3/uL Lymphocytes 0.6 10 3/uL Monocytes 0.3 10 3/uL Eosinophils 0.1 10 3/uL Basophils 0.0 10 3/uL Neutrophil % 73.0 % Lymphocyte % 16.4 % Monocyte % 7.5 % Eosinophil % 2.3 % Basophils % 0.5 % NRBC % 0 % CEA 3.9 ng/mL Impression: Moderately differentiated adenocarcinoma of the rectum status post neoadjuvant combined chemoradiation with oral Xeloda from 01/18/2018 to 02/25/[address] Status post robotic resection of rectal mass with ileostomy final pathology report showed tumor invades through muscularis propria into pericolorectal tissue ,T3, no regional lymph node metastasis in 11 examined lymph node N0, no lymphovascular/perineural invasion seen . ypT3,N0 stage II MMR/MSI testing showed normal expression of DNA mismatch repair protein Focally infiltrating adenocarcinoma per rectal biopsy done on 11/24/2017 CT scan of abdomen pelvis done on 11/24/2017 showed in the region of rectum there is near circumferential mucosal thickening with enhancement extending over a length of 6.2 cm and multiple hepatic lesions largest being 4.9 x 5.1 x 3.1 cm in posterior right lobe of the liver CT PET scan done on 12/12/2017 showed primary rectal carcinoma with SUV of 20.1 measured 4.3 x 3.7 x 7 cm there are small subcentimeter multiple presacral and perirectal lymph nodes present and posterior right hepatic lobe mass seen on CT scan of abdomen pelvis is FDG negative this makes hepatic metastatic disease unlikely. MRI scan of the pelvis done on 12/16/2017 showed there is a qunx-irjyx-xbouro masslike process within the mid to superior rectum roughly 8.5 cm above the anal verge measure 4.3 cm in length and nonspecific 8 mm left perirectal lymph node seen MRI scan of the liver done on 12/31/2017 reported: Several liver lesions compatible with cavernous hemangiomas including posterior margin right lobe somewhat exophytic lesion. Additional incidental superior subcapsular medial segment left lobe. No space-occupying liver lesion seen to suggest metastatic disease. 2. Lipid rich left adrenal adenoma. Mr. Sweet was advised to pursue neoadjuvant combined therapy with radiation and chemotherapy. His chemotherapy agent consisted of Xeloda 1500 mg twice a day on the days of radiation only. He began his first treatment with Xeloda and radiation on January 18, 2018. He has tolerated treatment very well. He completed his final radiation treatment on 02/25/2018. He completed the Xeloda as well. CT scan of abdomen pelvis done on 03/17/2018 showed improvement in rectal wall thickening stable liver lesion most suggestive of cavernous hemangiomas, upper pole left renal lesion, likely a solid lesion and stable from prior exam. Status post robotic resection of rectal mass with 11 lymph nodes removal and final pathology report showed persistent disease e.g.T3 and 0 out of 11 lymph nodes positive for metastatic disease with ileostomy bag. The current plan is to do ileostomy bag reversal after adjuvant chemotherapy is concluded. Mr Sweet started on adjuvant chemotherapy with modified dose FOLFOX on 06/09/2018. He had tolerated it well overall, but did have a drop in blood counts with his first cycle resulting in a delay in cycle 2. He is now having worsening leg and back pain. Somewhat supsected to be from oxaliplatin but he also has moderate to severe bilateral foraminal stenosis at L5-S1 due to combination of factors including grade 1 spondylolisthesis of L5 and L5 spondylosis. There is also mild facet joint arthropathy throughout the lumbar spine. no significant central stenosis. His chemotherapy with modified dose FOLFOX is on hold since 09/01/2018 e.g. after cycle #5/12. Patient was evaluated by Dr. Ivan, neurologist on 09/23/2018, so he was given vitamin E, Effexor and continue with lyrica . Now being monitored in pain clinic, numbness in his hands has improved significantly but persistent numbness in in the feet, right more than left. Patient doesn't want to start chemotherapy as per patient, he was told by neurology and pain clinic that his numbness in his feet is due to chemotherapy. Patient was evaluated in colorectal clinic at [facility] and following was recommended, observation alone, or complete remaining adjuvant therapy with 5-FU alone continue with FOLFOX with close monitoring. As his numbness in lower extremity appears to be multifactorial including but most likely pathology in his spine , as numbness in his hands is resolved. Next Patient wants to see Dr. Alvarez neurologist in [place] and want to discuss with him regarding safety of oxaliplatin/5-FU before we consider chemotherapy, knowing the risk versus benefits involved. After fifth dose of FOLFOX, patient decided not to take further chemotherapy rather observation alone Plan: Discussed with patient regarding his labs white blood count 5000 hemoglobin 13.4 hematocrit 41.9 platelets 164,000 compared to 125,000 on May 09, 2020 CMP within normal limits except glucose 134 Clinically, patient is doing well with no new signs symptoms just of recurrence of disease, his follow-up lab work-up is within normal range, mild leukopenia/thrombocytopenia seen on previous lab, now has resolved. We will continue to monitor. As per patient he will see Dr. Sofia for follow-up with scans of abdomen in March 2021. And has been following with him in the past, patient was requesting if he can follow-up with Dr. Sofia and if there is evidence of recurrence he will call us, in that case we will see him on as-needed basis Signed By: Juany Cohen M.D. <<Signature on File>>
== END 2020-09-11 12:57 | disposition home or self-care (01) ==
LOC: ONCMED 12:59
PROVIDERS: PCP Family Medicine; Visit Provider Internal Medicine Hematology & Oncology
DX: C20 Malignant neoplasm of rectum (principal); D72.819 Decreased white blood cell count, unspecified; D69.6 Thrombocytopenia, unspecified; Z90.49 Acquired absence of other specified parts of digestive tract; Z92.21 Personal history of antineoplastic chemotherapy
CPT/HCPCS: 36415; 80053; 82378; 85025; G0463

== ENCOUNTER → 2020-10-11 12:03 | Outpatient (BNVA) | payer MEDICARE, OTHER, SELFPAY | PROVIDERS: PCP Family Medicine; Visit Provider Anesthesiology | DX: G89.29 Other chronic pain (principal); M48.07 Spinal stenosis, lumbosacral region; G62.89 Other specified polyneuropathies; Z79.891 Long term (current) use of opiate analgesic | CPT/HCPCS: 99213 ==

== ENCOUNTER → 2020-12-11 09:08 | Outpatient (BNVA) | payer MEDICARE, OTHER, SELFPAY | PROVIDERS: PCP Family Medicine; Visit Provider Anesthesiology | DX: G89.29 Other chronic pain (principal); M79.671 Pain in right foot; M79.672 Pain in left foot; M48.07 Spinal stenosis, lumbosacral region; G62.89 Other specified polyneuropathies; R29.898 Other symptoms and signs involving the musculoskeletal system; Z79.891 Long term (current) use of opiate analgesic | CPT/HCPCS: 99213 ==

== ENCOUNTER → 2021-02-13 09:09 | Outpatient (BNVA) | payer MEDICARE, OTHER, SELFPAY | PROVIDERS: PCP Family Medicine; Visit Provider Anesthesiology | DX: G89.29 Other chronic pain (principal); M79.604 Pain in right leg; M79.605 Pain in left leg; M48.07 Spinal stenosis, lumbosacral region; G62.89 Other specified polyneuropathies; R29.898 Other symptoms and signs involving the musculoskeletal system; Z87.891 Personal history of nicotine dependence; Z79.891 Long term (current) use of opiate analgesic | CPT/HCPCS: 99213 ==

== ENCOUNTER → 2021-04-05 09:24 | Outpatient (BNVA) | payer MEDICARE, OTHER, SELFPAY | PROVIDERS: PCP Family Medicine; Visit Provider Anesthesiology | DX: G89.29 Other chronic pain (principal); M79.604 Pain in right leg; M79.605 Pain in left leg; G62.89 Other specified polyneuropathies; M48.07 Spinal stenosis, lumbosacral region; R29.898 Other symptoms and signs involving the musculoskeletal system; Z79.891 Long term (current) use of opiate analgesic | CPT/HCPCS: 99214 ==

== ENCOUNTER 2021-05-20 11:01 | Outpatient (CLI) | payer MEDICARE, OTHER, SELFPAY ==
--- NOTE | 2021-05-20 11:44 | CT_ITS ---
WS: [id number] CT CHEST, ABDOMEN AND PELVIS HISTORY: RECTAL CANCER TECHNIQUE: Contiguous 5 mm axial imaging performed through the chest, abdomen and pelvis with IV cont rast, oral contrast has been provided. Coronal and sagittal reformats chest. Coronal and sagittal ref ormats through the abdomen and pelvis. All CT scans at [facility] use at least one of these d ose optimization techniques: automated exposure control; mA and/or kV adjustment per patient size (in cludes targeted exams where dose is matched to clinical indication); or iterative reconstruction. CONTRAST: Omnipaque 300; 95 and 75 mL IV. DLP: 974.42 mGy.cm COMPARISON: 12/09/2017 and 03/17/[address]: New LEFT lower lobe subsegmental atelectasis and bronchial wall thickening. No pulmonary ma ss or nodule. Mild elevation LEFT hemidiaphragm. No mediastinal or hilar adenopathy. Heart size is no rmal. No pericardial or pleural effusion. Small hiatal hernia. Normal size aorta. 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 No new mass or bile duct dilatation. Normal ga llbladder. Normal pancreas and spleen. Normal RIGHT adrenal gland. Stable adenoma within the LEFT adr enal gland measures 2.4 cm. Negative RIGHT kidney. There is a very slight bulge and distortion of the cortex of the upper pole LEFT kidney with the lesion measuring 1.7 x 1.3 cm suspected. This is very ill-defined but early renal cell neoplasm should be considered. Nonobstructing calcifications in each renal pelvis. No GI tract obstruction. The appendix is normal. Numerous diverticula in the sigmoid c olon without acute diverticulitis. Rectal anastomotic sutures are unchanged. No recurrent mass or flu id. Very mild presacral soft tissue thickening at the site of the surgery. No adjacent lymph nodes. Pelvic CT: Central prostate gland calcifications. Small amount of presacral soft tissue thickening re lated to the rectal carcinoma. No recurrent mass. Normal bladder. Prior posterior lumbar fusion at L5 -S1. CT/CT chest abd pel wo/w con IMPRESSION: 1. No evidence for recurrent neoplasm within the chest, abdomen or pelvis. 2. Stable appearance of the rectal anastomotic sutures with no recurrent mass or obstruction. 3. Slight bulge of the contour and change of density in the superior pole LEFT kidney measuring 1.7 x 1.3 cm. Suspect early renal cell neoplasm. Recommend re nal ultrasound follow-up to evaluate for solid mass upper pole LEFT kidney. Thi s may not be visible by ultrasound. If this is not visible recommend renal mass CT protocol in 3-4 months. 4. Stable masses within the RIGHT lobe of the liver which are thought to be he mangiomas on prior imaging studies. 5. Stable LEFT adrenal adenoma. 6. New mild elevation of the LEFT hemidiaphragm with subsegmental atelectasis in the LEFT lower lobe.
[2021-05-20] MEDS: iohexol 300 mg/mL 50 mL Btl PO (12:08)
[2021-05-20 12:12] LABS: Basophils % 0.5 %; Eosinophils # 0.1 10^3/uL (0.0-0.8); Eosinophils % 1.4 %; Hematocrit 41.5 % (42.0-52.0); Hemoglobin 13.3 g/dL (11.7-16.6); Lymphocytes # 0.6 10^3/uL (0.8-4.8); Lymphocytes % 14.7 %; Mean Corpuscular Hemoglobin 30.9 pg (28.0-34.0); Mean Corpuscular Volume 96.5 fl (80-94); Mean Platelet Volume 12.4 fL (7.4-10.4); Monocytes # 0.2 10^3/uL (0.2-0.9); Monocytes % 5.6 %; Neutrophils # 3.32 10^3/uL (1.8-7.7); Neutrophils % 77.6 %; Nucleated Red Blood Cells % 0 %; Platelet Count 148 10^3/cmm (130-400); Red Cell Distribution Width 13.3 % (12.1-15.1); White Blood Count 4.3 10^3/uL (4.0-10.0)
[2021-05-20 13:22] LABS: Carcinoembryonic Antigen 4.9 ng/mL (0.0-4.7)
[2021-05-20 13:33] LABS: Alanine Aminotransferase 14 U/L (0-41); Albumin Level 3.9 g/dL (3.5-5.2); Alkaline Phosphatase 98 IU/L (40-130); Anion Gap 14.6 (5-19); Aspartate Amino Transferase 11 U/L (0-40); Blood Urea Nitrogen 19 mg/dL (8-23); Carbon Dioxide 27 mmol/L (22-29); Chloride 100 mmol/L (98-107); Globulin 2.7 g/dL (1.3-4.6); Glomerular Filtration Rate 83.4 mL/min (90-130); Glucose 77 mg/dL (65-115); Osmolality Calculated 285 mOsm/kg (285-295); Potassium 4.6 mmol/L (3.5-5.1); Sodium 137 mmol/L (136-145); Total Bilirubin 0.3 mg/dL (0.15-1.2); Total Protein 6.6 g/dL (6.6-8.7)
[2021-05-20] MEDS: iohexol 300 mg/mL 100 mL Btl IV (13:46)
== END 2021-05-20 11:02 | disposition home or self-care (01) ==
LOC: ONCMED 11:01
PROVIDERS: PCP Family Medicine; Visit Provider Internal Medicine Hematology & Oncology
DX: C20 Malignant neoplasm of rectum (principal); Z92.3 Personal history of irradiation; Z79.899 Other long term (current) drug therapy
CPT/HCPCS: 36415; 71260; 74178; 80053; 82378; 85025; Q9967

== ENCOUNTER → 2021-05-29 08:35 | Outpatient (BNVA) | payer MEDICARE, OTHER, SELFPAY | PROVIDERS: PCP Family Medicine; Visit Provider Anesthesiology | DX: G89.29 Other chronic pain (principal); M79.604 Pain in right leg; M79.605 Pain in left leg; M48.07 Spinal stenosis, lumbosacral region; G62.89 Other specified polyneuropathies; R29.898 Other symptoms and signs involving the musculoskeletal system; Z79.891 Long term (current) use of opiate analgesic | CPT/HCPCS: 99214 ==

== ENCOUNTER 2021-06-18 14:09 | Outpatient (CLI) | payer MEDICARE, OTHER, SELFPAY ==
--- NOTE | 2021-06-18 14:20 | MR_ITS ---
WS: [id number] MRI ABDOMEN with and without CONTRAST. COMPARISON: 10/12/2019, 12/31/[address] from 05/20/2021 Multiplanar, multisequence imaging is performed with and without contrast. Sagittal and axial T1 fat sat sequences post-MultiHance 19 cc IV. This examination is targeted to the kidneys. No hydronephrosis of either kidney. No significant corti clayton thinning. There is a very slight bulge of the posterior superior pole LEFT kidney. The T2 sequenc es there is slight increased density and low signal on the T1 sequences. There is some very mild enha ncement noted on the postcontrast sequence. There is a lesion measures 1 cm in largest diameter. I mendoza spect this may be very early renal cell neoplasm which will need serial follow-up evaluation. No griselda tional enhancing masses within either kidney. Patient has known RIGHT hepatic lobe hemangiomas. The largest hemangioma in the RIGHT lobe of the tere er measures 3.6 x 4.6 cm. These hemangiomas haven't been previous the described. There is also a elke gn and previously described LEFT adrenal adenoma. LEFT adrenal adenoma measures 2.5 x 2.4 cm. No ascites or adenopathy is identified. MR/MR abdomen wo/w con* [id number] IMPRESSION: 1. Heterogeneous and mildly enhancing exophytic nodule from the posterior supe rior LEFT kidney. Corresponds to the finding described on a recent CT. Favor th is is probably a very small early renal cell neoplasm which will need serial fo llow-up evaluation. This nodule measures only 9 mm. Recommend yearly MRI follow -up evaluation or three-phase CT. 2. Stable multiple RIGHT hepatic lobe cavernous hemangiomas. 3. Long-term stability LEFT adrenal adenoma.
[2021-06-18] MEDS: gadobenate dimeglumine 20 mL vial IV (14:56)
== END 2021-06-18 14:10 | disposition home or self-care (01) ==
PROVIDERS: PCP Family Medicine; Visit Provider Internal Medicine Hematology & Oncology
DX: C20 Malignant neoplasm of rectum (principal); D35.02 Benign neoplasm of left adrenal gland; D18.09 Hemangioma of other sites; N28.89 Other specified disorders of kidney and ureter
CPT/HCPCS: 74183; A9577

== ENCOUNTER 2025-02-06 08:47 | Outpatient (CLI) | payer MEDICARE, OTHER, SELFPAY ==
--- NOTE | 2025-02-06 | ECG_ITS ---
[facility] 2025[facility]06 Pat Name: Rogerio Sweet Department: Room: Gender: Male [employer] He[employer]: : 1950 Requested By: Erin Rivera Order Number: [id number] Génesis MD: Skyler Fritz M.D. Interpretive Statements LEXISCAN SESTAMIBI STRESS TEST Procedure: At the baseline, the blood pressure was 152/72 mmHg with a heart rate of 80 bpm. The electrocardiogram showed normal sinus rhythm, incomplete right bundle branch block with normal ST and T's. The Lexiscan was infused over a period of 20 seconds. A total of 0.4 mg of Lexiscan was infused. The stress phase was continued for a total of 5 minutes. Heart rate was at the end of stress phase was 84 bpm and a blood pressure of 141/68 mmHg. The EKG at the peak infusion revealed normal sinus rhythm with no significant ST-T wave changes. Sestamibi was injected 20 seconds after the Lexiscan infusion. Blood pressure at the end of recovery phase was 138/69 mmHg with a heart rate of 85 bpm. Conclusion: 1. Normal EKG response to Lexiscan infusion 2. No Lexiscan induced chest pain or cardiac arrhythmia. 3. Normal blood pressure and heart rate response. 4. Sestamibi/sestamibi perfusion scan pending; see separate report. Electronically Signed On 02-25-2025 13:57:19 CDT by Skyler Fritz M.D. [email or web address]
[2025-02-06 09:08] VITALS: BMI 28.3
--- NOTE | 2025-02-06 09:08 | NMCV_ITS ---
NM hiral perf SPECT r/s* [id number] Rogerio Sweet Age: 74 Gender: M : 1950 Exam Date: 02/06/2025 09:58 Ordering Phys: Erin Norris DO Technologist: LINDSAY Ashley Exam Location: [facility] Indications: cp STRESS TEST Please [facility] IMAGE PROTOCOL Rest/Stress 1 Lexiscan Day Radiopharmaceutical Dose (mCi) Administration Site Administered by Rest: Tc-99m 10.5 IV Qing Holm, SAP SENIOR DEVELOPER Sestamibi Stress:Tc-99m 33 IV Qing Mercadogle, SAP SENIOR DEVELOPER Sestamibi Rest: 06-Feb-2025 60 Discovery 630 Stress: 06-Feb-2025 30 Discovery 630 0.4mg Lexiscan. Images obtained in supine and prone position. SPECT RESULTS Technical Quality: Good Raw Data Analysis: Normal Image Corrections: No attenuation or motion correction applied Summed Stress Score: 6 Summed Rest Score: 5 Summed Difference Score: 2 PERFUSION FINDINGS There is a medium sized area of partially reversible perfusion defect seen in the inferolateral wall. This is consistent with medium sized area of prior infarct with medium sized area karen-infarct ischemia in left circumflex artery distribution. FUNCTIONAL RESULTS (calculated via Gated SPECT) Stress Image LV EF (%): 44 Stress EDV (mL):122 TID: 0.91 Stress ESV (mL):68 FUNCTIONAL FINDINGS: LV systolic function is mildly reduced with EF of 44% IMPRESSIONS 1. Abnormal myocardial perfusion imaging with medium sized area of prior infarct with medium sized area of karen-infarct ischemia seen in left circumflex artery territory. 2. LV systolic function is mildly reduced with EF of 44% Skyler Fritz MD (Electronically Signed) Final Date: 11 February 2025 11:13 S
[2025-02-06] MEDS: regadenoson 0.4 Mg/5 ml Syringe IVP (10:26)
[2025-02-06 10:44] VITALS: BP 146/68; PULSE 83
== END 2025-02-06 08:48 | disposition home or self-care (01) ==
LOC: CDL 08:52
PROVIDERS: PCP Family Medicine; Visit Provider Internal Medicine Cardiovascular Disease
DX: R06.09 Other forms of dyspnea (principal); R93.1 Abnormal findings on diagnostic imaging of heart and coronary circulation
CPT/HCPCS: 36415; 78452; 93017; 96374; A9500; J2785